=== PATIENT | female | born 1985 ===

== ENCOUNTER 2016-12-10 06:09 | Inpatient (IN) | payer BC ==
[2016-12-06 10:14] VITALS: BMI 27.8
[2016-12-10 07:06] LABS: BASO % 0.4 % (0.0-2.0); EOS # 0.1 K/uL (0.0-0.7); EOS % 1.4 % (0.0-4.0); HEMATOCRIT 31.4 % (34.0-47.0); LYMPH # 1.5 K/uL (1.0-4.3); MEAN CORPUSCULAR HEMOGLOBIN 19.7 pg (27.0-31.0); MEAN CORPUSCULAR HGB CONC 30.4 g/dL (33.0-37.0); MEAN PLATELET VOLUME 8.6 fL (7.2-11.7); MONO # 0.4 K/uL (0.0-0.8); MONO % 6.8 % (0.0-10.0); RED CELL DISTRIBUTION WIDTH 25.2 % (11.5-14.5); WHITE BLOOD COUNT 6.1 K/uL (4.8-10.8)
[2016-12-10 07:20] LABS: MEAN CELL VOLUME 64.8 fL (81.0-99.0)
[2016-12-10] MEDS ORDERED: Lactated Ringer's 1,000 ML IV ONE ×4 (07:53→14:30)
[2016-12-10] MEDS ORDERED: Midazolam 2 MG/2 ML VIAL ONE (08:43)
[2016-12-10] MEDS ORDERED: Rocuronium 10 mg/ml (10 ml) ONE (08:43)
[2016-12-10] MEDS ORDERED: Propofol 10 mg/ml Inj (20 ML) ONE (08:43)
[2016-12-10] MEDS ORDERED: HYDROmorphone 0.5 mg/0.5 ml ISec IVP PRN (08:44)
[2016-12-10] MEDS ORDERED: Methylene Blue 10 mg/ml (1ml) Inj ONE (08:46)
[2016-12-10] MEDS ORDERED: Bacitracin Ointment 30 GM TUBE ONE (08:46)
[2016-12-10] MEDS ORDERED: ceFAZolin IV 2 gm in Dextrose 1 GM/50 ML BAG IVPB ONE (08:46)
[2016-12-10 10:02] LABS: HEMATOCRIT 28.4 % (34.0-47.0)
[2016-12-10] MEDS ORDERED: Morphine Monoject Barrel PCA 1mg/ml IV PRN (11:00)
[2016-12-10] MEDS: HYDROmorphone 0.5 mg/0.5 ml ISec IVP PRN ×2 (11:25→11:42)
[2016-12-10] MEDS ORDERED: Lactated Ringer's 1,000 ML IV SCH (11:30)
--- NOTE | 2016-12-10 11:34 | PCM.SURG1 ---
Surgeon's Initial Post Op Note - Surgeon's Notes Surgeon: Paulina Keyes MD Rug Cutter Helper: Terrance Sneed< Type of Anesthesia: General Endo Pre-Operative Diagnosis: Abnormal uterine bleeding, sympomatic anemia, pelvic pain, fibroid uterus Operative Findings: 12 week sizes uterus, normal tubes blunted with tubal ligation effect, normla ovaries bilaterally, angie bladder adhesions to lower uterine segment, dense omental adhesions over uterus, angie fascia adhesions. bilateral patent ureters on cystoscpy bilatearlly. Dr Terrance Sneed was casting assistant and was prsent for entire case and essential in gaining entry , lsying adhesions, removing specimen, obtaining hemostaisi, closing all layers Post-Operative Diagnosis: Same as above Operation Performed: Total abdominal hysterectomy, bilateral salpingectomy, lysis of adhesions, cystoscopy Specimen/Specimens Removed: uterus, cervix, left and right fallopian tube Estimated Blood Loss: EBL {In ML}: 700 Blood Products Given: N/A Drains Used: No Drains Date of Surgery/Procedure: 12/10/16 Time of Surgery/Procedure: 08:30
[2016-12-10 11:43] LABS: HEMATOCRIT 28.3 % (34.0-47.0); MEAN CELL VOLUME 64.4 fL (81.0-99.0); MEAN CORPUSCULAR HEMOGLOBIN 19.2 pg (27.0-31.0); MEAN CORPUSCULAR HGB CONC 29.7 g/dL (33.0-37.0); MEAN PLATELET VOLUME 8.7 fL (7.2-11.7); RED CELL DISTRIBUTION WIDTH 24.9 % (11.5-14.5)
[2016-12-10 11:53] LABS: WHITE BLOOD COUNT 19.1 K/uL (4.8-10.8)
[2016-12-10 11:54] LABS: CHLORIDE 105 mmol/L (98-107); SODIUM 136 mmol/L (132-148)
[2016-12-10 11:55] LABS: POTASSIUM 3.4 mmol/L (3.6-5.2)
[2016-12-10 11:57] LABS: CARBON DIOXIDE 21 mmol/L (22-30); GFR AFRICAN-AMERICAN > 60
[2016-12-10 11:58] LABS: BLOOD UREA NITROGEN 10 mg/dL (7-17); CALCIUM 7.7 mg/dl (8.6-10.4); GLUCOSE,RANDOM 113 mg/dL (65-105)
[2016-12-10] MEDS ORDERED: HYDROmorphone 0.5 mg/0.5 ml ISec IVP ONE (12:45)
[2016-12-10] MEDS: ceFAZolin IV 1 gm in Dextrose 1 GM/50 ML BAG IVPB SCH ×2 (16:32→22:11)
[2016-12-10] MEDS: Simethicone 80 mg Chewtab PO SCH (22:13)
[2016-12-11] MEDS: ceFAZolin IV 1 gm in Dextrose 1 GM/50 ML BAG IVPB SCH (06:13)
[2016-12-11] MEDS: Simethicone 80 mg Chewtab PO SCH ×3 (06:19→21:43)
[2016-12-11 08:11] LABS: HEMATOCRIT 26.2 % (34.0-47.0); MEAN CELL VOLUME 64.2 fL (81.0-99.0); MEAN CORPUSCULAR HEMOGLOBIN 19.8 pg (27.0-31.0); MEAN CORPUSCULAR HGB CONC 30.8 g/dL (33.0-37.0); MEAN PLATELET VOLUME 8.8 fL (7.2-11.7); RED CELL DISTRIBUTION WIDTH 25.3 % (11.5-14.5); WHITE BLOOD COUNT 10.5 K/uL (4.8-10.8)
[2016-12-11 08:16] LABS: CHLORIDE 102 mmol/L (98-107)
[2016-12-11 08:17] LABS: POTASSIUM 3.7 mmol/L (3.6-5.2); SODIUM 136 mmol/L (132-148)
[2016-12-11 08:19] LABS: GFR AFRICAN-AMERICAN > 60
[2016-12-11 08:20] LABS: BLOOD UREA NITROGEN 5 mg/dL (7-17); CALCIUM 8.4 mg/dl (8.6-10.4); CARBON DIOXIDE 24 mmol/L (22-30); GLUCOSE,RANDOM 101 mg/dL (65-105)
[2016-12-11] MEDS ORDERED: Oxycodone/Acetaminophen 5/325 mg Tab PO PRN ×2 (08:30→11:34)
--- NOTE | 2016-12-11 12:30 | CP.PCM.PN ---
Subjective - Date & Time of Evaluation Date of Evaluation: 12/11/16 Time of Evaluation: 11:00 - Subjective Subjective: Pt seen and examined and reports pain controlle with mediaitn. Pt out ot bed to chair, pt ambuating to bathroom, voiding, not passing flatus, tolerating liquid diet, denies any lighttheadness, dizzyness, CP, SOB. Pt usisng incentive spirometer. Objective - Vital Signs/Intake and Output Vital Signs (last 24 hours): Temp Pulse Resp BP Pulse Ox 100.3 F H 88 14 114/74 100 12/11/16 08:33 12/11/16 08:33 12/11/16 08:33 12/11/16 08:33 12/11/16 08:33 Intake and Output: 12/11/16 12/11/16 06:59 18:59 Intake Total 300 Output Total 350 Balance -50 - Medications Medications: Current Medications Ibuprofen (Motrin Tab) 600 mg PO TID PRN PRN Reason: Pain, Mild (1-3) Ondansetron HCl (Zofran Inj) 4 mg IVP Q8H PRN PRN Reason: Nausea/Vomiting Last Admin: 12/11/16 07:24 Dose: 4 mg Oxycodone/Acetaminophen (Percocet 5/325 Mg Tab) 1 tab PO Q4H PRN PRN Reason: Pain, moderate (4-7) Stop: 12/14/16 11:34 Oxycodone/Acetaminophen (Percocet 5/325 Mg Tab) 2 tab PO Q4H PRN PRN Reason: Pain, severe (8-10) Stop: 12/14/16 08:31 Simethicone (Mylicon Chew Tab) 80 mg PO Q8 KATHERINE Last Admin: 12/11/16 06:19 Dose: 80 mg - Labs Labs: 12/11/16 08:03 12/11/16 08:03 - Constitutional Appears: Well, Non-toxic - Head Exam Head Exam: ATRAUMATIC, NORMAL INSPECTION - Eye Exam Eye Exam: EOMI, Normal appearance Pupil Exam: NORMAL ACCOMODATION - ENT Exam ENT Exam: Mucous Membranes Moist - Neck Exam Neck Exam: Full ROM - Respiratory Exam Respiratory Exam: Clear to Ausculation Bilateral, NORMAL BREATHING PATTERN - Cardiovascular Exam Cardiovascular Exam: REGULAR RHYTHM, +S1, +S2 - GI/Abdominal Exam GI & Abdominal Exam: Soft Additional comments: non tender, no guarding, no rebound tenderness, no rigidity, +BS Incision C/D/I VE: no bleeding - Extremities Exam Extremities Exam: Normal Inspection Additional comments: no calf tendernes, no edema, negative mago's sign - Neurological Exam Neurological Exam: Alert, Awake, CN II-XII Intact, Normal Gait, Oriented x3 - Psychiatric Exam Psychiatric exam: Normal Affect, Normal Mood - Skin Skin Exam: Dry, Intact, Normal Color Assessment and Plan (1) Status post hysterectomy Assessment & Plan: 1. Pain Managment; Percocet/Motrin 2. Diet; Advance as toelrated 3. Encouarge ambuation, icnentive spiromter 4. Bowel regimen 5. AM labs 6. HB; 8 stable, po iron 7. clsoe observation of vitals 8. d/c ford Status: Acute
[2016-12-11] MEDS: Oxycodone/Acetaminophen 5/325 mg Tab PO PRN ×2 (12:38→22:19)
--- NOTE | 2016-12-11 19:27 | OP ---
PROCEDURE DATE: 12/10/2016 SURGEON: Dr. Paulina Keyes. DIP LUBE OPERATOR: Dr. Terrance Sneed. TYPE OF ANESTHESIA: General endotracheal. PREOPERATIVE DIAGNOSES: Abnormal uterine bleeding, symptomatic anemia requiring multiple transfusion s, pelvic pain, fibroid uterus. OPERATIVE FINDINGS: A 12-week size uterus, normal tubes, blunted with tubal ligation effect, normal ovaries bilaterally, dense bladder adhesions to the lower uterine segment, dense omental adhesions ov er uterus and fascial adhesions bilateral, patent uterus on cystoscopy bilaterally. Dr. Terrance Sneed was the surgical nurse practitioner and was present for the entire case and was essential f or gaining entry, lysing adhesions, retraction and exposure, removing specimen, obtaining hemostasis and closing all layers. POSTOPERATIVE DIAGNOSES: Abnormal uterine bleeding, symptomatic anemia requiring multiple transfusio ns, pelvic pain, fibroid uterus. OPERATION PERFORMED: Total abdominal hysterectomy, bilateral salpingectomy, lysis of adhesions and c ystoscopy. SPECIMEN REMOVED: Uterus, cervix, left and right fallopian tubes. ESTIMATED BLOOD LOSS: 700 mL. BLOOD PRODUCTS: None. COMPLICATIONS: None. INDICATIONS: The patient is a 31-year-old Vet who presented to the preop area for scheduled abdomina l hysterectomy after having severe symptomatic anemia requiring 2 units of PRBC blood transfusions th e night prior. The patient has a long history of menorrhagia and abnormal uterine bleeding and has f jamar attempts with oral contraceptives, NSAIDS and multiple medications. The patient now desires de finitive treatment because her symptoms are not improved with medical management and symptomatic anem ia was interfering with life and unable to perform daily activities of living. The patient had 2 joleen arean sections, 1 tubal ligation and history of gastric bypass. Risks, benefits, alternatives were r eviewed with patient. She understood the risk of total abdominal hysterectomy including but not limi partha to wound and intra-abdominal infections, injuries to major blood vessels, bowel, bladder, and ure ters. Injury to bladder or ureter may result in renal function loss, fistula and future restorative surgery, major hemorrhage would require transfusion. There is also a rare risk of as a result of surgical complications. The patient desired to proceed and signed the consent. She was taken to the OR with IV fluid running and pneumatic compression stockings applied to lower extremities. Gener al anesthesia was obtained without difficulty. The patient was examined under anesthesia with findin gs as above. DESCRIPTION OF PROCEDURE: The patient was prepared and draped in dorsal supine position. Oliver cath eter was inserted and the bladder was emptied. A Pfannenstiel skin incision was made with a scalpel. The incision was carried down to the underlying fascia with the Bovie. The fascia was incised and extended laterally. Inferior aspect of the fascia was grasped with Maicol clamps. The underlying re ctus muscles was identified and dissected off sharply with the Goldman scissors. In a similar fas hion, the superior aspect of the fascia was elevated with and rectus muscles dissected off blun tly. Hemostasis was obtained with the Bovie. The rectus muscle was in the midline down to the level of the pubic symphysis. Preperitoneal fatty tissue was bluntly dissected in addition to t he omentum which was covering the peritoneum in which there were dense adhesions noted. In a clear s pace, the adhesions were removed and suture ligated. The peritoneum was entered. The peritoneal inc ision was extended superiorly and inferiorly and to the bladder reflection with the Metzenbaum scisso rs. Intraabdominal survey revealed the findings as above. An O'Sean-O'Bergeron retractor was plac ed with the bowel packed away using moist sponges. The patient was placed in slight Trendelenburg po sition. Long Estrella clamps were placed bilaterally along the cornua of the uterus, in addition to a c orkscrew into the midline to help allow for upward traction. Upward traction was applied to facilita te exposure and dissection. The round ligament was identified and cut with the LigaSure device on ei ther side. The anterior leaf of the broad ligament was dissected to the midline of the vesicouterine peritoneum in which there were dense adhesions. Careful dissection was noted. There was also a ebenezer dder adhesion noted along which was carefully dissected in addition to a band noted from the pelvic s neno wall to the uterus, which was carefully dissected. The bladder was dissected off the lower uteri ne segment and cervix with the Metzenbaum scissors. A window was created in the avascular space area of the posterior leaf. The ovarian ligament and fallopian tube was clamped, cut and doubly ligated. The ureter was identified on the medial aspect of the broad ligament. Following this, the uterine vessels were then skeletonized, doubly clamped and cut. The pedicles were then suture ligated and go od hemostasis was noted. The cardinal ligaments and uterosacral ligaments were sequentially clamped, cut, and suture ligated. Curved Akira clamps were placed at the angles of the vagina. The cervix was removed from the vaginal cuff with scissors. The vaginal angles were closed with Akira stitch a nd tied to the uterosacral ligament to provide support to the vagina. The vaginal cuff was then clos ed with interrupted 0 Vicryl sutures. Good hemostasis noted. Following this, the operative sites we re then identified and good hemostasis was noted. The fallopian tube was then carefully grasped usin g a [place] clamp and the mesosalpinx was carefully dissected using LigaSure device and the fallopian tube was removed on either side and there was good hemostasis noted. The pelvis was irrigated with warm normal saline. The patient was taken out of Trendelenburg position. There was good hemostasis noted at all operative sites including the lysis of adhesion sites, the vaginal cuff and at the salpi ngectomy site. Following this, the peritoneum was reapproximated and closed with 2-0 chromic in inte rrupted manner. The rectus was reapproximated and closed with 2-0 chromic in an interrupted manner. The subcutaneous space was closed with 2-0 plain in interrupted manner. The skin was reapproximated and closed with 4-0 Monocryl in a running subcuticular fashion. Following this, the abdomen was then cleaned and the incision was then covered. Following this, a cy stoscopy was then performed in which the patient was placed in dorsal supine position with legs suppo rted using stirrups. The bladder was then removed and a 30 degree cystoscope was then inserted under direct visualization using normal saline as the distention media. Prior to this portion of the case , Indigo carmine was then given to the patient IV and upon cystoscopy, bilateral ureteral jets were v isualized on both sides. There were no sutures noted, no masses, no intrabladder pathology noted. T he cystoscope was removed and the Oliver catheter was then reinserted. At the end of the procedure, a ll needle, sponge and instrument counts were noted to be correct x 2. The patient tolerated the proc edure well and was transferred to the recovery in stable condition. Paulina Keyes MD cc: [id number] TT: 12/11/2016 19:27:13 rn
[2016-12-11] MEDS ORDERED: Magnesium Hydroxide Susp 30 ml UD PO ONE (22:37)
[2016-12-12 00:42] VITALS: O2SAT 98
[2016-12-12] MEDS: Simethicone 80 mg Chewtab PO SCH (06:06)
[2016-12-12 08:26] VITALS: BP 112/77; PULSE 90; RESP 18; TEMP 99.9
--- NOTE | 2016-12-13 11:10 | CARD ---
APPROVED REPORT EKG Measurement Heart [id number] [id number] <Conclusion> Normal sinus rhythm Normal ECG
--- NOTE | 2016-12-16 00:11 | CP.PCM.PN ---
Subjective - Date & Time of Evaluation Date of Evaluation: 12/12/16 Time of Evaluation: 07:00 - Subjective Subjective: pt seen and examined reports pain well controlle,d just feels like she needs to go #2. pt denie sany lightheadness, dizzyness, CP, SOB. Pt ambuating, voidng, toleratinre regular diet, no complants Objective - Vital Signs/Intake and Output Vital Signs (last 24 hours): Temp Pulse Resp BP Pulse Ox 99.9 F H 90 18 112/77 98 12/12/16 08:19 12/12/16 08:19 12/12/16 08:19 12/12/16 08:19 12/12/16 08:19 - Labs Labs: 12/11/16 08:03 12/11/16 08:03 - Constitutional Appears: Well, Non-toxic - Head Exam Head Exam: ATRAUMATIC, NORMAL INSPECTION - Eye Exam Eye Exam: EOMI, Normal appearance Pupil Exam: NORMAL ACCOMODATION - ENT Exam ENT Exam: Mucous Membranes Moist - Neck Exam Neck Exam: Normal Inspection - Respiratory Exam Respiratory Exam: Clear to Ausculation Bilateral, NORMAL BREATHING PATTERN - Cardiovascular Exam Cardiovascular Exam: REGULAR RHYTHM, +S1, +S2 - GI/Abdominal Exam GI & Abdominal Exam: Soft, Normal Bowel Sounds Additional comments: nn tender no guarding, no reboudn tenderenss, no rigidty, +BS INcsion C/D/I n vaginal bleeding - Extremities Exam Extremities Exam: Full ROM, Normal Inspection Additional comments: negative mago's sign - Neurological Exam Neurological Exam: CN II-XII Intact, Oriented x3 - Psychiatric Exam Psychiatric exam: Normal Affect - Skin Skin Exam: Normal Color Assessment and Plan (1) Status post hysterectomy Assessment & Plan: s/p BILLY POD #2 doing well with chronic asympomati canemia 1. pain manent 2. encouarge ambuatin, incentive spiroer, abodminal binder 3. bowel regimen, fleet enenma 4. d/ [place] PM Status: Acute
--- NOTE | 2016-12-16 00:13 | CP.PCM.DIS ---
Provider - Provider Date of Admission: 12/10/16 06:09 Attending physician: Paulina Keyes MD Time Spent in preparation of Discharge (in minutes): 30 Diagnosis - Discharge Diagnosis (1) Status post hysterectomy Status: Acute Priority: Medium Hospital Course - Lab Results Lab Results: Most Recent Lab Values WBC 10.5 K/uL (4.8-10.8) 12/11/16 08:03 RBC 4.09 Mil/uL (3.80-5.20) 12/11/16 08:03 Hgb 8.1 g/dL (11.0-16.0) L 12/11/16 08:03 Hct 26.2 % (34.0-47.0) L 12/11/16 08:03 MCV 64.2 fL (81.0-99.0) L 12/11/16 08:03 MCH 19.8 pg (27.0-31.0) L 12/11/16 08:03 MCHC 30.8 g/dL (33.0-37.0) L 12/11/16 08:03 RDW 25.3 % (11.5-14.5) H 12/11/16 08:03 Plt Count 316 K/uL (130-400) 12/11/16 08:03 MPV 8.8 fL (7.2-11.7) 12/11/16 08:03 Neut % (Auto) 67.4 % (50.0-75.0) 12/10/16 07:02 Lymph % (Auto) 24.0 % (20.0-40.0) 12/10/16 07:02 [place] % (Auto) 6.8 % (0.0-10.0) 12/10/16 07:02 Eos % (Auto) 1.4 % (0.0-4.0) 12/10/16 07:02 Baso % (Auto) 0.4 % (0.0-2.0) 12/10/16 07:02 Neut # 4.1 K/uL (1.8-7.0) 12/10/16 07:02 Lymph # 1.5 K/uL (1.0-4.3) 12/10/16 07:02 [place] # 0.4 K/uL (0.0-0.8) 12/10/16 07:02 Eos # 0.1 K/uL (0.0-0.7) 12/10/16 07:02 Baso # 0.0 K/uL (0.0-0.2) 12/10/16 07:02 Differential Comment 12/10/16 07:02 Sodium 136 mmol/L (132-148) 12/11/16 08:03 Potassium 3.7 mmol/L (3.6-5.2) 12/11/16 08:03 Chloride 102 mmol/L (98-107) 12/11/16 08:03 Carbon Dioxide 24 mmol/L (22-30) 12/11/16 08:03 Anion Gap 13 (10-20) 12/11/16 08:03 BUN 5 mg/dL (7-17) L 12/11/16 08:03 Creatinine 0.5 MG/DL (0.7-1.2) L 12/11/16 08:03 Est GFR ( Amer) > 60 12/11/16 08:03 Est GFR (Non-Af Amer) > 60 12/11/16 08:03 Random Glucose 101 mg/dL (65-105) 12/11/16 08:03 Calcium 8.4 mg/dl (8.6-10.4) L 12/11/16 08:03 Blood Type A POSITIVE 12/10/16 07:28 Antibody Screen Negative 12/10/16 07:28 - Hospital Course Hospital Course: preop 2 units prbcm transufsion day before, s/p BILLY, uncomplciated, normal postoperative course - Date & Time of H&P Date of H&P: 12/10/16 Time of H&P: 07:00 Discharge Exam - Head Exam Head Exam: ATRAUMATIC, NORMAL INSPECTION - Eye Exam Eye Exam: EOMI, Normal appearance - Respiratory Exam Respiratory Exam: Clear to PA & Lateral, NORMAL BREATHING PATTERN, UNREMARKABLE - Cardiovascular Exam Cardiovascular Exam: REGULAR RHYTHM, +S1, +S2 - GI/Abdominal Exam GI & Abdominal Exam: Normal Bowel Sounds, Soft - Neurological Exam Neurological exam: CN II-XII Intact, Reflexes Normal - Psychiatric Exam Psychiatric exam: Normal Affect, Normal Mood Discharge Plan - Follow Up Plan Condition: GOOD Disposition: HOME/ ROUTINE Instructions: Abdominal Hysterectomy (DC), Wound Healing and Your Diet (GEN)
== END 2016-12-12 12:16 | disposition home or self-care (01) | DRG 743 ==
LOC: C.9S 06:09 → MERGE 06:09 → C.4M 14:37
PROVIDERS: ADMIT Obstetrics & Gynecology; ATTEND Obstetrics & Gynecology
PROC: 0UT70ZZ Resection of Bilateral Fallopian Tubes, Open Approach (ICD-10-PCS; 2016-12-10)
PROC: 0DNW0ZZ Release Peritoneum, Open Approach (ICD-10-PCS; 2016-12-10)
PROC: 0UT90ZZ Resection of Uterus, Open Approach (ICD-10-PCS; principal; 2016-12-10 08:31)
PROC: 0UTC0ZZ Resection of Cervix, Open Approach (ICD-10-PCS; 2016-12-10 08:31)
DX: D25.9 Leiomyoma of uterus, unspecified (principal); D64.9 Anemia, unspecified; N92.0 Excessive and frequent menstruation with regular cycle; N83.8 Other noninflammatory disorders of ovary, fallopian tube and broad ligament; N73.6 Female pelvic peritoneal adhesions (postinfective); N84.0 Polyp of corpus uteri; N88.8 Other specified noninflammatory disorders of cervix uteri; R10.2 Pelvic and perineal pain; Z98.51 Tubal ligation status; Z98.84 Bariatric surgery status